=== PATIENT | male | born 1965 | race Caucasian/White ===

== ENCOUNTER 2020-02-03 12:36 | Emergency (ER) | payer SELFPAY ==
[~2020-02-03] VITALS: Ht 182.9 cm; Wt 95.5 kg
[2020-02-03 12:40] VITALS: Ht 182.9 cm; Wt 95.5 kg
[2020-02-03 13:21] LABS: BASOPHILS 0.6 % (0-2); EOSINOPHILS 2.4 % (0-7); HEMATOCRIT 42.5 % (42.0-54.0); HEMOGLOBIN 14.5 g/dL (13.5-17.5); IMMATURE GRANULOCYTES 0.4 % (0-5); LYMPHOCYTES 22.5 % (15-50); MCH 33.6 pg (26.0-34.0); MCHC 34.1 g/dL (31.0-37.0); MCV 98.4 fL (80.0-100.0); MEAN PLATELET VOLUME 8.8 fL (7.4-10.4); MONOCYTES 10.9 % (2-11); NEUTROPHILS 63.2 % (40-80); PLATELET COUNT 153 10x3/uL (130-400); RBC 4.32 10x6/uL (4.20-6.10); RDW 14.1 % (11.5-14.5); WBC 5.3 10x3/uL (4.8-10.8)
[2020-02-03 13:31] LABS: ANION GAP 13.5 mmol/L (8-16); CALCIUM 8.5 mg/dL (8.5-10.1); CARBON DIOXIDE 23.7 mmol/L (21.0-32.0); CREATININE - SERUM 1.6 mg/dL (0.6-1.3); POTASSIUM - SERUM 4.2 mmol/L (3.5-5.1)
[2020-02-03 13:37] LABS: ALBUMIN 3.6 g/dL (3.4-5.0); BILIRUBIN - TOTAL 0.27 mg/dL (0.2-1.3); MAGNESIUM - SERUM 2.1 mg/dL (1.8-2.4); PROTEIN - SERUM 7.1 g/dL (6.4-8.2)
[2020-02-03 13:42] LABS: UDS - AMPHET NEGATIVE QUAL (NEGATIVE); UDS - BARB NEGATIVE QUAL (NEGATIVE); UDS - BENZO NEGATIVE QUAL (NEGATIVE); UDS - COCAINE NEGATIVE QUAL (NEGATIVE); UDS - OPIATE NEGATIVE QUAL (NEGATIVE); UDS - PCP NEGATIVE QUAL (NEGATIVE); UDS - THC NEGATIVE QUAL (NEGATIVE)
[2020-02-03 13:52] LABS: LIPASE 430 U/L (73-393); TROPONIN-I < 0.017 ng/mL (0.000-0.060)
[2020-02-03 13:53] LABS: BILIRUBIN NEGATIVE (NEGATIVE); GLUCOSE NEGATIVE (NEGATIVE); KETONE NEGATIVE (NEGATIVE); NITRITE NEGATIVE (NEGATIVE); UROBILINOGEN NORMAL (NORMAL)
--- NOTE | 2020-02-04 02:23 | NUR ---
DR. ROWLAND NOTIFIED AND REVIEWED PT'S BEHAVIOR AND ASSESSMENT RESULTS. PT IS A LOW RISK PER DR. ROWLAND. DR. ROWLAND STATED TO GIVE RESOURCES TO PT AT TIME OF DISCHARGE. NO FURTHER ORDERS AT THIS TIME. RESOURCES REVIEWED WITH PT AND HE VERBALIZED UNDERSTANDING.
[2020-02-04 02:48] VITALS: BP 155/89
== END 2020-02-04 02:48 | disposition home or self-care (01) ==
LOC: D.ER 12:36
PROVIDERS: Family Medicine
DX: F10.129 Alcohol abuse with intoxication, unspecified (principal); Y90.8 Blood alcohol level of 240 mg/100 ml or more; R44.3 Hallucinations, unspecified; R45.851 Suicidal ideations; F32.9 Major depressive disorder, single episode, unspecified; I10 Essential (primary) hypertension; F17.210 Nicotine dependence, cigarettes, uncomplicated

== ENCOUNTER 2020-04-06 09:07 | Emergency (ER) | payer MEDICAID ==
[~2020-04-06] VITALS: Ht 182.9 cm; Wt 93.2 kg
[2020-04-06 09:23] VITALS: BP 192/132; Ht 182.9 cm; Wt 93.2 kg
[2020-04-06] MEDS ORDERED: BACLOFEN10 MG PO (10:35)
[2020-04-06] MEDS ORDERED: DICLOFENAC SODI50 MG PO (10:35)
[2020-04-06] MEDS ORDERED: PREDNISONE20 MG PO (10:35)
[2020-04-06] MEDS ORDERED: MEDROL DOSE PACK4 MG PO (11:21)
== END 2020-04-06 12:18 | disposition home or self-care (01) ==
LOC: D.ER 09:07
DX: M50.30 Other cervical disc degeneration, unspecified cervical region (principal); G96.191 Perineural cyst; M62.838 Other muscle spasm; I10 Essential (primary) hypertension; Z72.0 Tobacco use